=== PATIENT | female | born 1965 | race Caucasian/White ===

== ENCOUNTER 2023-06-02 18:24 | Emergency (ER) | payer OTHER ==
[2023-06-02 18:43] VITALS: BP 144/93; PULSE 88; RESP 18; TEMP 97; BMI 27.7
[2023-06-02] MEDS ORDERED: BACITRACIN ZINC 15 GM TUBE TOPICAL OINTMENT TP ONE (20:01)
[2023-06-02] MEDS ORDERED: IBUPROFEN 600 MG TABLET (FP) PO ONE ×2 (20:01→20:03)
[2023-06-02] MEDS ORDERED: ACETAMINOPHEN 500 MG TABLET (FP) PO ONE (20:01)
[2023-06-02] MEDS ORDERED: DIPHTH,PERTUSS(ACELL),TET 0.5 ML DISP.SYRIN IM ONE ×2 (20:01→20:04)
[2023-06-02] MEDS ORDERED: BACITRACIN ZINC 15 GM TUBE TOPICAL OINTMENT ONE (20:03)
[2023-06-02] MEDS ORDERED: ACETAMINOPHEN 500 MG TABLET (FP) ONE (20:04)
== END 2023-06-02 21:10 | disposition home or self-care (01) ==
LOC: JERFT 18:24 → EDBD 18:24 → JERFT 21:10
PROC: 3E0234Z Introduction of Serum, Toxoid and Vaccine into Muscle, Percutaneous Approach (ICD-10-PCS; principal; 2023-06-02)
DX: M79.642 Pain in left hand (principal); M25.532 Pain in left wrist; M79.632 Pain in left forearm; R07.81 Pleurodynia; S60.512A Abrasion of left hand, initial encounter; M25.522 Pain in left elbow; W14.XXXA Fall from tree, initial encounter
CPT/HCPCS: 71101-TC-LT-FY; 73070-TC-LT-FY; 73090-TC-LT-FY; 73110-TC-LT-FY; 73130-TC-LT-FY; 90471; 90715; 99284-25